=== PATIENT | male | born 1990 ===

== ENCOUNTER 2017-01-08 20:19 | Emergency (ER) | payer OTHER ==
[2017-01-08] MEDS ORDERED: ONDANSETRON 4 MG ODT TAB ONE (21:37)
[2017-01-08] MEDS ORDERED: MAALOX/LIDO2%VISC/SIMETHICONE 40 ML BOT ONE (21:37)
[2017-01-08] MEDS ORDERED: FAMOTIDINE 20 MG TABLET ONE (22:05)
[2017-01-08] MEDS ORDERED: ACETAMINOPHEN 500 MG TABLET ONE (22:05)
== END 2017-01-08 22:21 | disposition home or self-care (01) ==
LOC: ED 20:19
DX: A08.4 Viral intestinal infection, unspecified (principal)
CPT/HCPCS: 99283 ×2; A9270 ×4